=== PATIENT | male | born 1985 | race Two or more races ===

== ENCOUNTER 2018-01-12 21:18 | Emergency (ER) | payer OTHER ==
[~2018-01-12] VITALS: Ht 172.7 cm; Wt 72.3 kg
[2018-01-12] MEDS ORDERED: FLEXERIL10 MG PO (23:19)
[2018-01-12] MEDS ORDERED: MOTRIN600 MG PO (23:19)
[2018-01-12 23:28] VITALS: BP 106/93
== END 2018-01-12 23:33 | disposition home or self-care (01) ==
LOC: EME 21:18
DX: S29.012A Strain of muscle and tendon of back wall of thorax, initial encounter (principal); V43.52XA Car driver injured in collision with other type car in traffic accident, initial encounter; Y92.410 Unspecified street and highway as the place of occurrence of the external cause
CPT/HCPCS: 99281; 99284